=== PATIENT | female | born 1945 | race Caucasian/White ===

== ENCOUNTER → 2016-03-24 | Outpatient (CLI) | payer MEDICARE, OTHER ==
[~2016-03-24] MED LIST: BUDE10.2 IH; CALC-694 PO; CALC1TAB97 PO; CHOL200018 PO; COZAAR; DIPH50CA PO; FURO20TA4 PO; GLUC-96 PO; KRIL500C PO; LOSA100T28 PO; LOSA50TA6 PO; MELA1TAB16 PO; METO-351 PO; MULT-418; MULT-856 PO; NAPR220T29 PO; NAPR375T2; OMG1KC; RT-ALBUINH IH; UBID1CAP51 PO; VITA1CAP21 PO
--- OUTSIDE RECORDS SUMMARY | 2016-03-24 10:24 | XMS REPORT | Continuity of Care Document ---
Author Author [facility] Organization [facility] Address Unknown Phone Unavailable Care Team Providers Care Reliability Engineer Name Role Phone KAROL PIZARRO MD PCP Insurance Providers Payer Name Policy Number Subscriber Name Relationship Wps Medicare [id number] Sinai Dooley Self / Same As Patient Comm Crossover Enter Ins Name [id number] Sinai Dooley Self / Same As Patient Advance Directives Directive Response Recorded Date/Time Advance Directives Yes 11/19/15 2:31pm Health Care Power of Smelter Operator No 11/19/15 2:31pm Organ Donor Yes 11/19/15 2:31pm Resuscitation Status Full Code 11/19/15 2:31pm Problems No problem information available. Medications Current Home Medications Medication Dose Units Route Directions Days/Qty Instructions Start Date Furosemide (Lasix) 20 Mg 20 Mg Oral Daily as needed for Weight Gain NEEDED FOR WEIGHT GAIN 3 TO 4 TIMES A WEEK 09/27/08 Naproxen Sodium 220 Mg 440 Mg Oral Twice A Day TAKES 2 (220MG) TABLETS 09/22/13 Krill Oil 500 Mg 500 Mg Oral Daily 09/22/13 Multivits W-Fe,Other Min/Lut 1 Each 1 Tab Oral Daily 09/22/13 Glucosa Kay 2KCL/Chondroitin Kay 1 Each 2 Tab Oral Daily 09/22/13 Ubidecarenone/Vit E Acetate 1 Each 100 Mg Oral Daily 09/22/13 Cholecalciferol (Vitamin D3) 2,000 Unit 2,000 Unit Oral Daily Melatonin/Pyridoxine Hcl (B6) 1 Each 10 Mg Oral Bedtime TAKES 2 (5MG) TABLETS 09/22/13 Calcium Carbonate/Vitamin D3 1 Each 1 Tab Oral Daily 11/19/15 Albuterol Sulfate 8.5 Gm 1-2 Puff Inhalation Every 4HRS as needed for Shortness Of Breath 11/19/15 Budesonide/Formoterol Fumarate 10.2 Gm 1 Puff Inhalation Daily 11/18 Losartan Potassium 100 Mg 100 Mg Oral Daily 11/19/15 Diphenhydramine Hcl 50 Mg 50 Mg Oral Bedtime 11/19/15 Metoprolol Succinate 25 Mg 25 Mg Oral Daily 30 11/19/15 Past Home Medications Medication Directions Ordered Status Della , 09/27/08 Discontinued Naproxen 375 Mg Tablet., 09/27/08 Discontinued Fish Oil 1,000 Mg Cap, 09/27/08 Discontinued Multivitamins 1 Each Tab.aparna, 09/27/08 Discontinued Losartan Potassium 50 Mg Tablet, 50 Mg Oral Daily 09/22/13 Discontinued Calcium Citrate/Vitamin D3 1 Each Tablet, 1 Tab Oral Daily 09/22/13 Discontinued Vitamin B Complex 1 Cap Capsule, 1 Cap Oral Daily 09/22/13 Discontinued Social History Social History Problem Response Recorded Date/Time Recent Foreign Travel No 11/19/2015 2:33pm Recent Infectious Disease Exposure No 11/19/2015 2:33pm Smoking Status Former Smoker 11/19/2015 2:32pm Query Response Start Date Stop Date Smoking Status Former Smoker Hospital Discharge Instructions Patient Instructions Physician Instructions Follow Up/Plan Appointment with Dr Dobbins's office in 2-4 weeks CARDIAC CATH DISCHARGE INSTRUCTIONS *Hold Metformin for 48 hours post heart cath. ACTIVITY * Go Home directly and rest. * Limit activity of the leg (or wrist if it was used) for 7 days including aerobics, swimming, jogging, bicycling, etc. * Restrict stair-climbing for 7 days if possible, if not, climb up with your non-cath leg, then bring together on the same step. * Avoid lifting, pushing, pulling or excessive movement of the affected extremity for 7 days. * Customary sexual activity may be resumed after 2 days-use caution not to use a position that strains or causes pain to the affected extremity. * No driving for 24 hours. * NO SMOKING. * Avoid straining for bowel movements for 7 days. * Gentle walking on level ground is allowed. * Returning to work will depend on the type of procedure and the results. Your doctor will discuss this with you. CALL YOUR DOCTOR FOR ANY OF THE FOLLOWING: *If bleeding from the puncture site occurs- Apply gentle pressure to site with clean cloth and call your doctor or EMS. * If a knot or lump forms under the skin, increases in size, or causes pain. * If bruising appears to be worsening or moving further down your leg instead of disappearing. * Temperature above 101 F. CARE OF YOUR GROIN INCISION; * Bruising or purple discoloration of the skin near the puncture site is common. * You may shower only, no bathtub bathing for 5 days. Be careful to avoid slipping as your leg may feel stiff. * If a closure device was used on your femoral artery, please see the attached guide regarding care of the device and your leg. * REMOVE the dressing from your groin the next day after your procedure in the shower. CARE OF YOUR WRIST INCISION; * Bruising or purple discoloration of the skin near the puncture site is common. * You may shower. * DO NOT submerge wrist. * Remove dressing in 24 hours. Plan of Care Discharge Date 11/19/15 8:35pm Instructions/Education Provided CARDIAC CATH DISCHARGE INSTRUC Prescriptions See Medication Section Functional Status Query Response Date Recorded Patient Orientation Person Place Time Situation November 19, 2015 9:10pm Allergies, Adverse Reactions, Alerts Allergen Type Severity Reaction Status Last Updated NKANo Known Allergies Allergy Mild Active 09/27/08 Immunizations No immunization records. Vital Signs Acute Vital Signs Vital Response Date/Time Temperature (Fahrenheit) 97.3 degrees F (97.6 - 99.5) 11/19/2015 4:00pm Temperature (Calculated Celsius) 36.34438 degrees C (36.4 - 37.5) 11/19/2015 4:00pm Temperature Source Tympanic 11/19/2015 4:00pm Pulse Rate (adult) 61 bpm (60 - 90) 11/19/2015 8:21pm Respiratory Rate 13 bpm (12 - 24) 11/19/2015 8:00pm O2 Sat by Pulse Oximetry 99 % (88 - 100) 11/19/2015 8:21pm Blood Pressure 109/54 mm Hg 11/19/2015 8:21pm Blood Pressure Mean 72 mm Hg 11/19/2015 8:00pm Pain Numeric Pain Scale 0-No Pain 11/19/2015 8:21pm Height (Feet) 5 feet 11/19/2015 2:33pm Height (Inches) 4.00 inches 11/19/2015 2:33pm Height (Calculated Centimeters) 162.999139 cm 11/19/2015 2:33pm Weight (Pounds) 198 pounds 11/19/2015 2:33pm Weight (Ounces) 0.0 oz 11/19/2015 2:33pm Weight (Calculated Grams) 55004.29 gm 11/19/2015 2:33pm Weight (Calculated Kilograms) 89.354753 kilograms 11/19/2015 2:33pm Calculated BMI 34.0 11/19/2015 2:33pm Capillary Refill Capillary Refill Less Than 3 Seconds 11/19/2015 8:20pm Capillary Refill Capillary Refill Less Than 3 Seconds 11/19/2015 8:20pm Results Laboratory Results Test Name Result Units Flags Reference Collection Date/Time Result Date/ Time Comments White Blood Count 11.3 10^3/uL H 4.3-11.0 11/19/2015 2:30pm 11/19/2015 2: 42pm Red Blood Count 4.99 10^6/uL 4.35-5.85 11/19/2015 2:30pm 11/19/2015 2: 42pm Hemoglobin 14.5 G/DL 11.5-16.0 11/19/2015 2:30pm 11/19/2015 2:42pm Hematocrit 43 % 35-52 11/19/2015 2:30pm 11/19/2015 2:42pm Mean Corpuscular Volume 85 FL 80-99 11/19/2015 2:30pm 11/19/2015 2: 42pm Mean Corpuscular Hemoglobin 29 PG 25-34 11/19/2015 2:30pm 11/19/2015 2: 42pm Mean Corpuscular Hemoglobin Concent 34 G/DL 32-36 11/19/2015 2:30pm 2:42pm Red Cell Distribution Width 14.1 % 10.0-14.5 11/19/2015 2:30pm 2015 2:42pm Platelet Count 222 10^3/uL 130-400 11/19/2015 2:30pm 11/19/2015 2:42pm Mean Platelet Volume 11.6 FL H 7.4-10.4 11/19/2015 2:30pm 11/19/2015 2: 42pm Prothrombin Time 12.6 SEC 12.2-14.7 11/19/2015 2:30pm 11/19/2015 2: 53pm INR Comment 1.0 0.8-1.4 11/19/2015 2:30pm 11/19/2015 2:53pm INTERPRETIVE DATA SUGGESTED THERAPEUTIC RANGE FOR INR'S: VENOUS THROMBOSIS, PULMONARY EMBOLISM, OR PREVENTION OF SYSTEMIC EMBOLISM (EG. IN ATRIAL FIBRILLATION): 2.0 - 3.0 MECHANICAL PROSTHETIC HEART VALVES: 2.5 - 3.5* *NOTE: INR'S UP TO 4.5 MAY BE NECESSARY IN SELECTED GROUPS OF HIGH RISK PATIENTS. [employer] CONSENSUS CONFERENCE ON ANTITHROMBOTIC THERAPY (2000). Activated Partial Thromboplast Time 36 SEC H 24-35 11/19/2015 2:30pm 2:53pm Urine Color YELLOW 11/19/2015 2:28pm 11/19/2015 2:54pm Urine Clarity CLEAR 11/19/2015 2:2811/19/2015 2:54pm Urine pH 6 5-9 11/19/2015 2:28pm 11/19/2015 2:54pm Urine Specific [place] 1.020 1.016-1.022 11/19/2015 2:28pm 2015 2:54pm Urine Protein NEGATIVE NEGATIVE 11/19/2015 2:28pm 11/19/2015 2:54pm Urine Glucose (UA) NEGATIVE NEGATIVE 11/19/2015 2:28pm 11/19/2015 2: 54pm Urine RBC (Auto) NEGATIVE NEGATIVE 11/19/2015 2:2811/19/2015 2: 54pm Urine Ketones NEGATIVE NEGATIVE 11/19/2015 2:28pm 11/19/2015 2:54pm Urine Nitrite NEGATIVE NEGATIVE 11/19/2015 2:28pm 11/19/2015 2:54pm Urine Bilirubin NEGATIVE NEGATIVE 11/19/2015 2:2811/19/2015 2: 54pm Urine Urobilinogen NORMAL MG/DL NORMAL 11/19/2015 2:28pm 11/19/2015 2: 54pm Urine Leukocyte Esterase 3+ * NEGATIVE 11/19/2015 2:11/19/2015 2: 54pm Urine RBC NONE /HPF 11/19/2015 2:11/19/2015 2:54pm Urine WBC 10-25 /HPF * 11/19/2015 2:11/19/2015 2:54pm Urine Bacteria TRACE /HPF 11/19/2015 2:11/19/2015 2:54pm Urine Squamous Epithelial Cells 5-10 /HPF 11/19/2015 2:pm 2015 2:54pm Urine Crystals NONE /LPF 11/19/2015 2:11/19/2015 2:54pm Urine Casts NONE /LPF 11/19/2015 2:11/19/2015 2:54pm Urine Mucus NEGATIVE /F 11/19/2015 2:11/19/2015 2:54pm Urine Culture Indicated YES 11/19/2015 2:11/19/2015 2:54pm Sodium Level 140 MMOL/L 135-145 11/19/2015 2:3011/19/2015 3:02pm Potassium Level 4.0 MMOL/L 3.6-5.0 11/19/2015 2:11/19/2015 3:02pm Chloride Level 103 MMOL/L 98-107 11/19/2015 2:11/19/2015 3:02pm Carbon Dioxide Level 27 MMOL/L 21-32 11/19/2015 2:3011/19/2015 3: 02pm Anion Gap 10 MMOL/L 5-14 11/19/2015 2:30pm 11/19/2015 3:02pm Blood Urea Nitrogen 18 MG/DL 7-18 11/19/2015 2:11/19/2015 3:02pm Creatinine 0.84 MG/DL 0.60-1.30 11/19/2015 2:11/19/2015 3:02pm BUN/Creatinine Ratio 21 11/19/2015 2:11/19/2015 3:02pm Estimat Glomerular Filtration Rate > 60 11/19/2015 2:2015 3:02pm GFR INTERPRETIVE DATA UNITS FOR ESTIMATED GFR (eGFR): mL/min/1.73 M2 REFERENCE RANGE FOR ESTIMATED GFR (eGFR) eGFR NORMAL eGFR >60 MODERATELY DECREASED eGFR 30-59 SEVERLY DECREASED eGFR 15-29 KIDNEY FAILURE <15 (OR DIALYSIS) Glucose Level 95 MG/DL 70-105 11/19/2015 2:30pm 11/19/2015 3:02pm Calcium Level 9.7 MG/DL 8.5-10.1 11/19/2015 2:30pm 11/19/2015 3:02pm Total Bilirubin 0.5 MG/DL 0.1-1.0 11/19/2015 2:30pm 11/19/2015 3:02pm Alkaline Phosphatase 92 U/L 40-136 11/19/2015 2:30pm 11/19/2015 3:02pm Aspartate Amino Transf (AST/SGOT) 34 U/L 5-34 11/19/2015 2:30pm 2015 3:02pm Alanine Aminotransferase (ALT/SGPT) 54 U/L 0-55 11/19/2015 2:30pm 11/18 3:02pm Total Protein 7.4 G/DL 6.4-8.2 11/19/2015 2:30pm 11/19/2015 3:02pm Albumin 4.3 G/DL 3.2-4.5 11/19/2015 2:30pm 11/19/2015 3:02pm Triglycerides Level 125 MG/DL <150 11/19/2015 2:30pm 11/19/2015 3:02pm Cholesterol Level 207 MG/DL H < 200 11/19/2015 2:30pm 11/19/2015 3:02pm HDL Cholesterol 45 MG/DL 40-60 11/19/2015 2:30pm 11/19/2015 3:02pm LDL Cholesterol Direct 145 MG/DL H 1-129 11/19/2015 2:30pm 11/19/2015 3: 02pm VLDL Cholesterol 25 MG/DL 5-40 11/19/2015 2:30pm 11/19/2015 3:02pm Procedures No known history of procedures. Encounters Encounter Location Arrival/Admit Date Discharge/Depart Date Attending Provider Departed [facility] 11/19/15 2:06pm 8:35pm CHRISTINA DOBBINS MD
== END ==
LOC: CARD 10:20
PROVIDERS: ATTEND Physician Assistant
DX: I25.10 Atherosclerotic heart disease of native coronary artery without angina pectoris (principal); R07.9 Chest pain, unspecified; R06.09 Other forms of dyspnea; I10 Essential (primary) hypertension
CPT/HCPCS: 93225; 93226

== ENCOUNTER → 2016-06-15 | Outpatient (CLI) | payer MEDICARE, OTHER ==
[2016-06-15 09:23] LABS: ALBUMIN 3.6 G/DL (3.2-4.5); BILIRUBIN,DIRECT 0.2 MG/DL (0.0-0.3); BILIRUBIN,INDIRECT 0.3 MG/DL; BILIRUBIN,TOTAL 0.5 MG/DL (0.1-1.0); TOTAL PROTEIN 6.2 G/DL (6.4-8.2)
== END ==
LOC: LAB 08:41
PROVIDERS: ATTEND Physician Assistant
DX: I25.10 Atherosclerotic heart disease of native coronary artery without angina pectoris (principal); R07.9 Chest pain, unspecified; R06.09 Other forms of dyspnea; I10 Essential (primary) hypertension
CPT/HCPCS: 36415; 80061; 80076

== ENCOUNTER 2016-08-05 19:37 | Emergency (ER) | payer MEDICARE, OTHER ==
[~2016-08-05] VITALS: Ht 162.6 cm; Wt 90.7 kg
[2016-08-05] MEDS ORDERED: fentaNYL INJECTION 100 MCG/2 ML AMP IVP STA (20:05)
[2016-08-05] MEDS ORDERED: LACTATED RINGERS 1,000 ML IV ONE (20:05)
[2016-08-05] MEDS ORDERED: ONDANSETRON 4 MG/2 ML (SDV) Z0FRAN IVP ONE ×2 (20:15→21:15)
[2016-08-05 20:27] LABS: BASOPHILS # (AUTO) 0.1 10^3/uL (0.0-0.1); BASOPHILS % (AUTO) 0 % (0-10); EOSINOPHILS # (AUTO) 0.2 10^3/uL (0.0-0.3); EOSINOPHILS % (AUTO) 2 % (0-10); LYMPHOCYTES # (AUTO) 4.9 X 10^3 (1.0-4.0); LYMPHOCYTES % (AUTO) 39 % (12-44); MEAN CORPUSCULAR HEMOGLOBIN 29 PG (25-34); MEAN CORPUSCULAR HGB CONC 33 G/DL (32-36); MEAN CORPUSCULAR VOLUME 88 FL (80-99); MEAN PLATELET VOLUME 12.1 FL (7.4-10.4); MONOCYTES # (AUTO) 0.8 X 10^3 (0.0-1.0); MONOCYTES % (AUTO) 7 % (0-12); NEUTROPHILS # (AUTO) 6.6 X 10^3 (1.8-7.8); NEUTROPHILS % (AUTO) 53 % (42-75); PLATELET COUNT 214 10^3/uL (130-400); RED BLOOD COUNT 4.33 10^6/uL (4.35-5.85); RED CELL DISTRIBUTION WIDTH 13.7 % (10.0-14.5); WHITE BLOOD COUNT 12.6 10^3/uL (4.3-11.0)
[2016-08-05 20:29] LABS: PROTHROMBIN TIME PATIENT 12.4 SEC (12.2-14.7)
[2016-08-05 20:38] LABS: ALANINE AMINOTRANSFERASE 35 U/L (0-55); ANION GAP 11 MMOL/L (5-14); ASPARTATE AMINO TRANSFERASE 30 U/L (5-34); BILIRUBIN,TOTAL 0.3 MG/DL (0.1-1.0); BLOOD UREA NITROGEN 21 MG/DL (7-18); BUN/CREATININE RATIO 24; CARBON DIOXIDE 24 MMOL/L (21-32); CHLORIDE 103 MMOL/L (98-107); CREATININE SERUM 0.87 MG/DL (0.60-1.30); GFR ESTIMATED > 60; GLUCOSE 167 MG/DL (70-105); MAGNESIUM 2.4 MG/DL (1.8-2.4); POTASSIUM 3.9 MMOL/L (3.6-5.0); SODIUM 138 MMOL/L (135-145); TOTAL PROTEIN 7.2 G/DL (6.4-8.2)
[2016-08-05 20:50] LABS: ERYTHROCYTE SEDIMENTATION RATE 11 MM/HR (0-30)
[2016-08-05] MEDS ORDERED: morphine INJ 10 MG/ML 1ML (SYR OR VIAL) ONE (20:50)
[2016-08-05] MEDS ORDERED: morphine INJ 10 MG/ML 1ML (SYR OR VIAL) IVP STA ×2 (20:53→21:12)
--- NOTE | 2016-08-05 20:53 | Diagnostic Imaging Report ---
PROCEDURE: CT head without contrast. TECHNIQUE: Multiple contiguous axial images were obtained through the brain without the use of intravenous contrast. INDICATION: Right-sided head pain with nausea and vomiting. COMPARISON STUDIES: None FINDINGS: Noncontrast CT scanning of the head demonstrates subarachnoid hemorrhage. Questionable aneurysm is present in the [place] on the right. No mass effect or midline shift present. IMPRESSION: There is subarachnoid hemorrhage. Recommend CTA of the head. The patient is being transferred to [facility]. Dictated by: Dictated on workstation # [id number]
[2016-08-05] MEDS ORDERED: METO-270 PO (21:12)
[2016-08-05] MEDS ORDERED: AMLO5TAB2 PO (21:12)
[2016-08-05] MEDS ORDERED: SCOPOLAMINE 1.5 MG (TRANSDERM-SCOP) PATCH TD ONE (21:15)
[2016-08-05] MEDS: morphine INJ 4 MG/ML 1 ML (VIAL/SYRINGE) IVP PRN ×2 (21:20→21:39)
--- NOTE | 2016-08-05 21:51 | ED Headache ---
General Chief Complaint: Head/Cervical Problems Stated Complaint: NAUSEA/VOMITING,HEAD HURTS,SWEATING Nursing Triage Note: PT C/O HEADACHE, NAUSEA VOMITING, R PAIN BEHIND EYE AROUND 1830 TODAY. Nursing Sepsis Screen: No Definite Risk Source: patient, spouse History of Present Illness Time seen by provider: 20:00 Initial Comments PT ARRIVES VIA POV C/O SUDDEN ONSET OF SEVERE RIGHT SIDED HEADACHE, BEGAN AROUND 1830 TONIGHT WHILE SHE WAS CARRYING WATER TO THE CHICKENS C/O NAUSEA AND VOMITED X 3 C/O SEVERE PAIN WITH ANY MOVEMENT OF HEAD OR WITH VOMITING NO VISION CHANGES NO PARESTHESIAS OR MOTOR DEFICITS NO DIZZINESS OR DIFFICULTY WALKING OR HAVING PROBLEMS WITH BALANCE HAS BEEN FINE ALL DAY, BEEN VERY BUSY BAKING A CAKE FOR [employer], WORKING AROUND THE HOUSE, ETC. NO HISTORY OF HEADACHES PCP: DR. PIZARRO HAS SEEN DR. UMANA IN THE PAST FOR CHEST PAIN-WORK UP BENIGN Allergies and Home Medications Allergies Coded Allergies: NKANo Known Allergies (Unverified Allergy, Mild, 09/27/08) Home Medications Albuterol Sulfate 8.5 Gm Hfa.aer.ad, 1-2 PUFF IH Q4H PRN for SHORTNESS OF BREATH , (Reported) Amlodipine Besylate 5 Mg Tablet, 5 MG PO DAILY, #90 (Reported) Budesonide/Formoterol Fumarate 10.2 Gm Hfa.aer.ad, 1 PUFF IH DAILY, (Reported) Losartan Potassium 100 Mg Tablet, 100 MG PO DAILY, (Reported) Metoprolol Succinate 25 Mg Tab.er.24h, 25 MG PO DAILY, #30 Ref 4 Prescribed by: CHRISTINA UMANA on 11/19/15 6608 Constitutional: no symptoms reported, No dizziness Eyes: No Symptoms Reported, Denies Blindness, Denies Blurred Vision, Denies Decreased Acuity, Denies Photophobia, Denies Shadows, Denies Tunnel Vision, Denies Vision Changes Ears, Nose, Mouth, Throat: no symptoms reported Respiratory: no symptoms reported Cardiovascular: no symptoms reported, No chest pain, No edema, No palpitations , No syncope, No vascular heart diseas Gastrointestinal: see HPI, No abdominal pain, nausea, vomiting Genitourinary: no symptoms reported Musculoskeletal: no symptoms reported Skin: no symptoms reported Psychiatric/Neurological: See HPI, Headache, Denies Numbness, Denies Paresthesia, Denies Seizure, Denies Tingling, Denies Tremors, Denies Weakness Past Emqtmca-Hoznar-Xxzrgp Hx Patient Social History Alcohol Use: Denies Use Recreational Drug Use: No Smoking Status: Never a Smoker Recent Foreign Travel: No Contact w/Someone Who Travel: No Recent Infectious Disease Expo: No Immunizations Up To Date Date of Pneumonia Vaccine: Dec 23, 2012 Surgeries HX Surgeries: Yes (BILATERAL CATARACTS; EGD/COLONOSCOPY; CARDIAC CATH 11/2015-- NO INTERVENTION) Surgeries: Cardiac, Eye Surgery Respiratory Hx Respiratory Disorders: Yes (MILD) Respiratory Disorders: COPD Cardiovascular Hx Cardiac Disorders: Yes Cardiac Disorders: High Cholesterol, Hypertension Neurological Hx Neurological Disorders: No Reproductive System Sexually Transmitted Disease: No HIV/AIDS: No Genitourinary Hx Genitourinary Disorders: No Gastrointestinal Hx Gastrointestinal Disorders: No Musculoskeletal Hx Musculoskeletal Disorders: Yes (ARTHRITIS) Musculoskeletal Disorders: Arthritis Endocrine Hx Endocrine Disorders: No HEENT HX ENT Disorders: Yes HEENT Disorders: Cataract Cancer Hx Cancer: No Psychosocial Hx Psychiatric Problems: No Integumentary HX Skin/Integumentary Disorder: No Blood Transfusions Hx Blood Disorders: No Physical Exam Vital Signs Vital Sign - Last 12Hours 08/05/16 08/05/16 20:00 20:17 Temp 97.0 Pulse 60 Resp 18 B/P (MAP) 156/77 Pulse Ox 94 O2 Delivery Room Air O2 Flow Rate 15.00 Capillary Refill : Less Than 3 Seconds General Appearance: WD/WN, no apparent distress, other (HOLDING RIGHT SIDE OF HEAD, KEEPS EYES CLOSED AND KEEPS HEAD VERY STILL. LOOKS UNCOMFORTABLE) HEENT: PERRL/EOMI, normal ENT inspection, TMs normal, pharynx normal Neck: non-tender, full range of motion, supple, normal inspection, No carotid bruit Cardiovascular: normal peripheral pulses, regular rate, rhythm, no edema, no JVD, no murmur Respiratory: normal breath sounds, no respiratory distress, no accessory muscle use Gastrointestinal: normal bowel sounds, non tender, soft, no organomegaly, no pulsatile mass Back: normal inspection Extremities: normal range of motion, non-tender, normal inspection, no pedal edema, no calf tenderness, normal capillary refill Psychiatric: alert, oriented x 3 [place] Nerves: normal hearing, normal speech, PERRL Coordination/Gait: other (GAIT NOT TESTED) Motor/Sensory: no motor deficit, no sensory deficit, no pronator drift Reflexes: 1+ Bicep (R), 1+ Bicep (L), 1+ Knee (R), 1+ Knee (L) Skin: normal color, warm/dry Progress/Results/Core Measures Results/Orders Lab Results Laboratory Tests Test 08/05/16 20:07 Range/Units White Blood Count 12.6 H 4.3-11.0 10^3/uL Red Blood Count 4.33 L 4.35-5.85 10^6/uL Hemoglobin 12.7 11.5-16.0 G/DL Hematocrit 38 35-52 % Mean Corpuscular Volume 88 80-99 FL Mean Corpuscular Hemoglobin 29 25-34 PG Mean Corpuscular Hemoglobin Concent 33 32-36 G/DL Red Cell Distribution Width 13.7 10.0-14.5 % Platelet Count 214 130-400 10^3/uL Mean Platelet Volume 12.1 H 7.4-10.4 FL Neutrophils (%) (Auto) 53 42-75 % Lymphocytes (%) (Auto) 39 12-44 % Monocytes (%) (Auto) 7 0-12 % Eosinophils (%) (Auto) 2 0-10 % Basophils (%) (Auto) 0 0-10 % Neutrophils # (Auto) 6.6 1.8-7.8 X 10^3 Lymphocytes # (Auto) 4.9 H 1.0-4.0 X 10^3 Monocytes # (Auto) 0.8 0.0-1.0 X 10^3 Eosinophils # (Auto) 0.2 0.0-0.3 10^3/uL Basophils # (Auto) 0.1 0.0-0.1 10^3/uL Erythrocyte Sedimentation Rate 11 0-30 MM/HR Prothrombin Time 12.4 12.2-14.7 SEC INR Comment 1.0 0.8-1.4 Activated Partial Thromboplast Time 30 24-35 SEC Sodium Level 138 135-145 MMOL/L Potassium Level 3.9 3.6-5.0 MMOL/L Chloride Level 103 98-107 MMOL/L Carbon Dioxide Level 24 21-32 MMOL/L Anion Gap 11 5-14 MMOL/L Blood Urea Nitrogen 21 H 7-18 MG/DL Creatinine 0.87 0.60-1.30 MG/DL Estimat Glomerular Filtration Rate > 60 BUN/Creatinine Ratio 24 Glucose Level 167 H 70-105 MG/DL Calcium Level 9.0 8.5-10.1 MG/DL Magnesium Level 2.4 1.8-2.4 MG/DL Total Bilirubin 0.3 0.1-1.0 MG/DL Aspartate Amino Transf (AST/SGOT) 30 5-34 U/L Alanine Aminotransferase (ALT/SGPT) 35 0-55 U/L Alkaline Phosphatase 74 40-136 U/L Total Protein 7.2 6.4-8.2 G/DL Albumin 4.0 3.2-4.5 G/DL My Orders Orders - RADHA MCGOWAN DO Saline Lock/Iv-Start (08/05/16 20:05) Ct Head Wo (08/05/16 20:05) Cbc With Automated Diff (08/05/16 20:05) Comprehensive Metabolic Panel (08/05/16 20:05) Erythrocyte Sedimentation Rate (08/05/16 20:05) Magnesium (08/05/16 20:05) Protime With Inr (08/05/16 20:05) Partial Thromboplastin Time (08/05/16 20:05) Saline Lock/Iv-Start (08/05/16 20:05) Lactated Ringers (Lr 1000 Ml Iv Solution (08/05/16 20:05) Ondansetron Injection (Zofran Injectio (08/05/16 20:15) Fentanyl Injection (Sublimaze Injection (08/05/16 20:05) Morphine Injection (Morphine Injection (08/05/16 20:53) Morphine Injection (Morphine Injection (08/05/16 20:50) Scopolamine Patch (Transderm-Scop Patch) (08/05/16 21:15) Ondansetron Injection (Zofran Injectio (08/05/16 21:15) Catheter(Urinary) Insert & Ass 03,15 (08/05/16 21:12) Morphine Injection (Morphine Injection (08/05/16 21:12) Morphine Injection (Morphine Injection (08/05/16 21:30) Monitor-Rhythm Ecg Trace Only (08/05/16 22:04) O2 (08/05/16 22:04) Medications Given in ED Current Medications Medications Dose Ordered Sig/Shayy Route Start Time Stop Time Status Last Admin Dose Admin Lactated Ringer's 1,000 ml @ 0 mls/hr Q0M ONCE IV 08/05/16:05 08/05/16 20:08 DC 08/05/16 20:17 0 MLS/HR Morphine Sulfate 2 mg Q15M PRN IVP 08/05/16 21:30 08/05/16 22:57 DC 08/05/16 21:39 2 MG Morphine Sulfate 10 mg STK-MED ONCE .ROUTE 08/05/16 20:50 08/05/16 20:54 DC 08/05/16 21:02 2 MG Ondansetron HCl 4 mg ONCE ONCE IVP 08/05/16 20:15 08/05/16 20:16 DC 08/05/16 20:16 4 MG Ondansetron HCl 8 mg ONCE ONCE IVP 08/05/16 21:15 08/05/16 21:16 DC 08/05/16 21:10 8 MG Scopolamine 1.5 mg ONCE ONCE TD 08/05/16 21:15 08/05/16 21:16 DC 08/05/16 21:18 1.5 MG Vital Signs/I&O Vital Sign - Last 12Hours 08/05/16 08/05/16 08/05/16 20:00 20:17 21:55 Temp 97.0 Pulse 60 77 Resp 18 16 B/P (MAP) 156/77 Pulse Ox 94 97 O2 Delivery Room Air Nonrebreather O2 Flow Rate 15.00 2.00 Blood Pressure Mean: 103 Progress Note : Progress Note NAUSEA IMPROVED WITH MEDICATIONS MILD IMPROVEMENT IN HEADACHE WITH MEDICATIONS--PT DID HAVE A DROP IN O2 SAT AND DECREASED RESPONSIVENESS WITH FENTANYL--RETURNED TO BASELINE AFTER A SHORT PERIOD OF TIME, AND SWITCHED TO MORPHINE FOR PAIN NO OTHER DETERIORATION IN PT'S CONDITION BP REMAINED STABLE AND IN 140'S/70'S DURING MOST OF ER STAY Diagnostic Imaging Comments CT HEAD--SUBARACHNOID BLEED ON RIGHT--LIKELY RUPTURED ANEURYSM--PER RADIOLOGIST VIA PHONE AT 2045 Reviewed: Reviewed by Me Departure Communication Progress Notes 2044--CALLED [facility], SPOKE WITH DR. ORANTES. ADVISES TO CALL TRANSFER LINE, AND NEEDS NEURO ICU BED. 2044--ATTEMPTING TO SECURE AIR TRANSPORT 2045--SPOKE WITH RADIOLOGIST ABOUT CT FINDINGS 2046--CALLED TRANSFER LINE. THEY WILL CALL ME BACK 2054--SPOKE WITH BRASS MOLDER, ANGELITO. HE WILL CALL ME BACK 2057--SPOKE WITH Rosa SALINAS, NEUROSURGEON, ACCEPTS PT FOR TRANSFER. HE ADVISES TO SEND PT EMERGENTLY BY LOCAL EMS IMMEDIATELY AND THE WILL CALL LATER WITH BED ASSIGNMENT 2099--EMS CALLED FOR TRANSPORT, THERE IS NO AIR TRANSPORT AVAILABLE DUE TO SEVERE WEATHER 2136--EMS HERE TO TRANSPORT PT. Impression Impression: Primary Impression: Subarachnoid hemorrhage due to ruptured aneurysm Disposition: XFER SHT-TRM HOSP Condition: Critical Departure-Patient Inst. Referrals: KAROL PIZARRO MD (PCP/Family) Primary Care Physician RADHA MCGOWAN DO August 05, 2016 21:51
[2016-08-05 21:55] VITALS: BP 145/70
== END 2016-08-05 21:55 | disposition short-term general hospital (02) ==
LOC: EDUNIT# 19:37 → ER 19:39
DX: I60.9 Nontraumatic subarachnoid hemorrhage, unspecified (principal); R11.2 Nausea with vomiting, unspecified; I10 Essential (primary) hypertension; J44.9 Chronic obstructive pulmonary disease, unspecified
CPT/HCPCS: 36415; 51702; 70450; 80053; 83735; 85025; 85610; 85652; 85730; 93041